=== PATIENT | male | born 1995 | race Caucasian/White ===

== ENCOUNTER 2019-03-14 21:29 | Emergency (ER) | payer BC ==
[~2019-03-14] VITALS: Ht 167.6 cm; Wt 65.8 kg
[2019-03-14 21:34] VITALS: BP_SYST 130
[2019-03-14] MEDS ORDERED: ONDANSETRON HCL 4 MG/2 ML VIAL IVP ONE (22:00)
[2019-03-14] MEDS ORDERED: NACL 0.9% 1,000 ML IV ONE (22:00)
[2019-03-14] MEDS ORDERED: KETOROLAC TROMETHAMINE 30 MG VIAL IVP ONE (22:00)
[2019-03-14 23:31] VITALS: BP_SYST 128
== END 2019-03-14 23:31 | disposition home or self-care (01) ==
LOC: SED 21:29
DX: F12.90 Cannabis use, unspecified, uncomplicated (principal); R03.0 Elevated blood-pressure reading, without diagnosis of hypertension
CPT/HCPCS: 93005; 96360; 99283; J7030; J1885; J2405